=== PATIENT | male | born 1995 ===

== ENCOUNTER 2025-03-28 08:53 | Outpatient (AMB) | payer OTHER, SELFPAY ==
--- NOTE | 2025-03-28 08:56 | A.OFFVIS_ITS ---
Intake Visit Reasons: 6m Allergies No Known Allergies Allergy (Verified 03/24/25 13:30) Medication List - Last Reconciled 03/28/25 by Alfredito Marshall MD divalproex mg PO divalproex mg PO mirtazapine 7.5 mg PO BEDTIME risperidone mg PO risperidone 1 mg PO BEDTIME HPI Comments Details: 29 yr old man for f/u of Sz on a background of severe mental retardation, autism, limited communication with an occasional single word, and sometimes repeats what was said to him. He has been stable. No had no reported Sz till February when he had a Seizure after having run out of meds for about a week. He is now back to baseline. He can express his needs to use the bathroom or food. He needs help with showers and rest. He goes to daycare. He is cared for at home by his mother and older sister and caregiver. He is had 4 or 5 lifetime seizures starting in his teenage years with no recurrence in the last 5 years or more. On 2 of these occasions he had urinary incontinence and was shaking. He is currently on Depakote twice a day. The mother is very concerned about taking him off seizure medication. [facility] Medical History (Updated 03/28/25 @ 09:03 by Alfredito Marshall MD) Static encephalopathy Autism Review of Systems Const Details: leep:? Difficulty getting to sleepdenies,?denies.? Difficulty maintaining sleep denies?,?denies?.? Urge to move legsdenies,?denies.? Teeth grindingad mits,?admits.? Shouting or Kicking during sleepdenies,?denies.? Abnormal behavior during sleepdenies,?denies.? Excessive sleepdenies,?denies.? Snoring denies,?denies.? Daytime sleepinessdenies,?denies. ???General/Constitutional:? Change in appetitedenies,?denies.? Chillsdenies,?denies.? Fatiguedenies,?denies .? Feverdenies,?denies.? Weight gaindenies,?denies.? Weight lossdenies,?denies. ???Ophthalmologic:? Blurred visiondenies,?denies.? Diminished visual acuitydenies,?denies. ???ENT:? Stuffinessdenies,?denies.? Decreased hearingdenies,?denies.? Dry mouth denies,?denies.? Ear paindenies,?denies.? Nosebleeddenies,?denies.? Ringing in the earsdenies,?denies.? Sinus paindenies,?denies.? Sore throatdenies,?denies.? Swollen glandsdenies,?denies. ???Endocrine:? Cold intolerancedenies,?denies.? Excessive thirstdenies,?denies.? Frequent urinationdenies,?denies.? Heat intolerancedenies,?denies. ???Respiratory:? Shortness of breathdenies,?denies.? Chest paindenies,?denies.? Cough denies,?denies. ???Breast:? Breast lumpdenies,?denies.? Nipple dischargedenies,?denies. ???Cardiovascular:? Chest pain at restdenies,?denies.? Chest pain with exertiondenies,?denies.? Claudicationdenies,?denies.? Dizzinessdenies,?denies.? Fluid accumulation in the legsdenies,?denies.? Irregular heartbeatdenies,?denies.? Palpitations denies,?denies. ???Gastrointestinal:? Abdominal paindenies,?denies.? Constipationdenies,?denies.? Diarrhea denies,?denies.? Difficulty swallowingdenies,?denies.? Heartburndenies,?denies.? Nauseadenies,?denies.? Rectal bleedingdenies,?denies. ???Hematology:? Easy bruisingdenies,?denies.? Prolonged bleedingdenies,?denies. ???Genitourinary:? Frequent urinationdenies,?denies.? Urgencydenies,?denies.? Incontinence denies,?denies.? Erectile Dysfunctiondenies,?denies. ???Musculoskeletal:? Neck paindenies,?denies.? Back paindenies,?denies.? Muscle achesdenies,?denies .? Painful jointsdenies,?denies.? Sciaticadenies,?denies.? Weakness denies,?denies. ???Podiatric:? Difficulty walkingdenies,?denies.? Foot numbnessdenies,?denies. ???Neurologic:? Difficulty swallowingdenies,?denies.? Balance difficultydenies,?denies.? Coordinationnormal,?normal.? Difficulty speakingdenies,?denies.? Dizziness denies,?denies.? Faintingdenies,?denies.? Gait abnormalitydenies,?denies.? Headachedenies,?denies.? Loss of strengthdenies,?denies.? Loss of use of extremitydenies,?denies.? Low back paindenies,?denies.? Memory loss denies,?denies.? Seizuresadmits,?admits.? Ticsdenies,?denies.? Tingling/Numbness denies,?denies.? Transient loss of visiondenies,?denies.? Tremordenies,?denies. ???Psychiatric:? Anxietydenies,?denies.? Auditory/visual hallucinationsdenies,?denies.? Delusionsdenies,?denies.? Depressed mooddenies,?denies.? Stressorsdenies,?denies .? Substance abusedenies,?denies.? Suicidal thoughtsdenies,?denies. Physical Exam Neuro Other: General Examination: GENERAL APPEARANCE:??normal,?in no acute distress.?HEAD:??normocephalic,?atraumatic.?EYES:??sclera non- icteric,?conjunctiva clear.?EARS:??auditory canal clear,?tympanic membrane intact, clear.?NOSE:??no lesions.?ORAL CAVITY:??gums normal,?mucosa moist,?no lesions.?THROAT:??clear.?NECK/THYROID:??no cervical lymphadenopathy,?thyroid normal,?neck supple, full range of motion,?no carotid bruit.?SKIN:??no rashes,?no significant birthmarks.?HEART:??S1, S2 normal,?no murmurs.?LUNGS:??clear anteriorly and posteriorly.?CHEST:??no gross rib deformity,?clear to auscultation.?BACK:??normal exam of spine.?EXTREMITIES:??no edema.?PERIPHERAL PULSES:??normal.?PSYCH:??alert, unable to evaluate. He is nonverbal. Does not follow commands.? Neurological: Abnormal neurological findings:??Severe . Unable to communicate effectively. alert and non verbal. limited cooperation.?.?Cranial Nerves:??Pupils are equal, round and reactive to light. External occular muscles are intact. Visual jim are full, no ptosis. Face is symmetrical, no facial weakness or droop. Facial sensations are normal. Tongue protrudes in midline. Palate elevates symmetrically. Shoulder shrugging is normal..?Motor Examination:??Normal muscle tone, bulk and strength,?No atrophy or fasciculations,?No drift of the extended upper extremities,?Deep tendon reflexes are 2+?,?Plantars are flexor?.?Motor Strength:?Proximal Muscles (out of 5):5Distal Muscles (out of 5):5Neck Flexors (out of 5):5Neck Extensors (out of 5):5Deltoid (out of 5):5Biceps (out of 5):5 Triceps (out of 5):5Serratus Anterior (out of 5):5Wrist Extensors (out of 5):5 APB (out of 5):5Finger Spread (out of 5):5Ileopsoas (out of 5):5Quadriceps (out of 5):5Hamstrings (out of 5):5Tibialis Anterior (out of 5):5Peronei (out of 5):5 EDB (out of 5):5Gastrocnemius (out of 5):5Straight Leg Raising:??90 degrees.?Sensory Exam:??Normal light touch, temperature, pinprick, vibration and joint-position sensations?,?Rhomberg sign is absent.?Coordination:??no ataxia,?no titubation,?[id number], zlrb-[id number] test and rapid alternating movements were normal.?Gait Exam:??Within normal limits.?Cerebellar Signs:??unable ?No tremor, rigidity with normal facial expressions,?No bradykinesia, no bradyphrenia. Normal arm swing and posture. No propulsion or retropulsion.?Speech:??limited.? 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 The mother understands the importance. Continue current medications which is Depakote 250 mg in the morning and 500 mg at bedtime Medications: New divalproex 250 mg PO ONCE 90 tabs 3RF Seizure 90 days divalproex 500 mg PO ONCE 90 tabs 3RF 90 days Coding Level of Care Code Est Pt Level 4 (57194) Diagnoses Seizure disorder G40.909 Autism F84.0 Static encephalopathy G93.49
--- OUTSIDE RECORDS SUMMARY | 2025-03-28 09:24 | XMS_ITS | Clinical Summary ---
Author Organization [address] Address [address] [place] [phone] Phone Care Team Providers Care Shrinking Machine Operator Name Role Phone Saskia Balderrama MD Primary Care Provider [phone] Allergies No known active allergies Medications LORazepam (ATIVAN) 0.5 mg tablet Take 1 Tablet by mouth Once for 1 dose. Take 30 mins prior to blood draw if needed 03/09/2024 Active divalproex (DEPAKOTE) [address] tablet Take 1 tablet (250 mg total) by mouth 1 (one) time each day. Active divalproex (DEPAKOTE) [address] tablet Take 1 tablet (500 mg total) by mouth 1 (one) time each day in the evening. 12/24/2020 Active mirtazapine (REMERON) 15 mg tablet Take 1 tablet (15 mg total) by mouth at bedtime. 06/14/2018 Active risperiDONE (RisperDAL) 1 mg tablet Take 0.5 Tablets by mouth every evening. Take 3 QHS 06/14/2018 Active loratadine (CLARITIN) 10 mg tablet Take 1 tablet (10 mg total) by mouth 1 (one) time each day. 90 tablet 1 08/02/2024 Active Active Problems Problem Noted Date Diagnosed Date Lack of expected normal physiological developmen t 06/20/2024 Overview (06/20/2024): IMO update Disturbance of conduct 06/20/2024 Overview (06/20/2024): IMO update Seizure disorder (CMS/HCC V24, CMS/HCC V28) 11/13 Autistic disorder 10/10/2005 Overview (06/20/2024): IMO update Encounters Date Type Department Care Team Description 02/01/2025 Telephone Adult Medicine [address] [phone] Saskia Balderrama MD 01/24/2025 Telephone Adult Medicine [address] [phone] Saskia Balderrama MD 12/27/2024 Telephone Adult Medicine [address] [phone] Carol Aguirre MA from Last 3 Months Immunizations Immunization Administration Dates Next Due DTaP (Infanrix) 6wks to less than 7yo ,04/29/1998,03/29/1997,01/27,1996 [id number]-OGI-VWS (Pentacel) 2mo to less than 5yo 12/27/1997,03/29/1997,01/27/1997,10/27 Hepatitis B Pediatric (Enger ix B; Recombivax HB) to less than 20 yo 04/04/1997,1996,1996 IPV Inactivated polio (Ipol) 6wks and older 08/26/2001,12/27/1997,01/27/1997,10/27 Influenza Quadravalent, MDCK , 0.5ml, preservative free (Flucelvax) 6mo and older 08/05/2019 Influenza trivalent, 0.5mL, preservative free (Fluarix; FluLaval; Fluzone) ages 6mo and older (Afluria) 3 years and older 07/07/2013 Influenza, live, intranasal, trivalent (FluMist) 2yo to less than 50yo 02/06/2011,04/09/2009 MMR, measles mumps and rubel la Live (Priorix; M-M-R II) 12mo and older 08/26/2001,12/27/1997 Meningococcal MCV4P 10/30/2015,10/12/2009 Tdap Tetanus diptheria acell ular pertussis (Boostrix; Adacel) 7yo and older 08/24/2008 Varicella live (Varivax) 12m o and older 08/24/2008,04/29/1998 Surgical History Surgery Date Site/Laterality Comments OTHER SURGICAL HISTORY PROCEDURE: DENIES PREVIOUS SURGERY Medical History Medical History Date Comments Lack of normal physiological development, unspecified DX:Lack of normal physiologi donato development, unspecified Unspecified disturbance of conduct DX:Unspecified disturbance of conduct Autistic disorder, current o r active state DX:Autistic disorder, curren t or active state Family History Medical History Relation Name Comments Asthma Aunt Alzheimer's disease Maternal Grandmother Hypertension Maternal Grandmother Stroke Maternal Grandmother Arthritis Mother Hyperlipidemia Mother Allergies Sister 1 Relation Name Status Comments Aunt Father Alive 11/27/ Maternal Grandfather Alive Maternal Grandmother Alive Mother Alive 12/31/1969 Paternal Grandfather Paternal Grandmother Sister 1 Sister 2 Alive 02/21/1991 Sister 3 06/21/1999 Social History Tobacco Use Types Packs/Day Years Used Date Smoking Tobacco: Never Smokeless Tobacco: Never Tobacco Cessation:Counseling Given: Not Answered Alcohol Use Standard Drinks/Week Comments No 0 (1 standard drink = 0.6 oz pur e alcohol) Sex and Gender Information Value Date Recorded Sex Assigned at Not on file Legal Sex Male 8:16 AM EST Gender Identity Not on file Sexual Orientation Not on file Obstetrics History Last Filed Vital Signs Vital Sign Reading Time Taken Comments Blood Pressure 110/70 12/21/2024 8:16 AM EDT Pulse 106 12/21/2024 8:16 AM EDT Temperature 36.4 C (97.5 F) 12/21/2024 8:16 AM EDT Respiratory Rate 14 12/21/2024 8:16 AM EDT Oxygen Saturation - - Inhaled Oxygen Concentration - - Weight 84.8 kg (187 lb) 12/21/2024 8:16 AM EDT Height 180.3 cm (5' 11 ) 12/21/2024 8:16 AM EDT Body Mass Index 26.08 12/21/2024 8:16 AM EDT Plan of Treatment Health Maintenance Due Date Last Done Comments DTaP,Tdap,and Td Vaccines (7 - Td or Tdap) 08/24/2018 08/24/2008, 08/26/2001, 04/29/1998, Additional history exists HIV Screening 05/18/2022 Hepatitis C Screening 05/18/2022 Social Influencers of Health Screening 05/18/2022 HPV Vaccines (1 - 3-dose SCDM series) 09/22/2023 Depression Screening 06/15/2024 07/10/2023 Influenza Vaccine (#1) 2025 , 07/07/2013, 02/06/2011, Additional history exists RSV Immunization Adult Patients (1 - 1-dose 75+ series) 09/22/2071 Hepatitis B Vaccines Completed 04/04/1997, 1996, 1996 HIB Vaccines Completed 12/27/1997, 03/15, 01/27/1997, Additional history exists IPV Vaccines Completed 08/26/2001, 12/13, 12/27/1997, Additional history exists MMR Vaccines Completed 08/26/2001, 12/27/1997 Varicella Vaccines Completed 08/24/2008, 04/29/1998 Meningococcal ACWY Vaccine Aged Out 10/30/2015, No longer eligible based on patient's age to complete this topic COVID-19 Vaccine Discontinued Hepatitis A Vaccines Aged Out No long er eligible based on patient's age to complete this topic Meningococcal B Vaccine Aged Out No l onger eligible based on patient's age to complete this topic Pneumococcal Vaccine: Pediatrics (0 to 5 Years) and At-Risk Patients (6 to 49 Years) Aged Out No longer eligible based on patient's age to complete this topic RSV Immunization Patients Under 20 months Aged Out No longer eligible based on patient's age to complete this topic Procedures Procedure Name Priority Date/Time Associated Diagnosis Comments DEPRESSION SCREENING Routine 07/10/2023 from Last 3 Months or Most Recently Relevant to Health Maintenance Results * Depression Screening (07/10/2023) Depression Screening Abstracted Historical Provider MD HEALTH MAINTENANCE Final Result from Last 3 Months or Most Recently Relevant to Health Maintenance Insurance [facility] Care Teams Shrinking Machine Operator Relationship Specialty Start Date End Date Saskia Balderrama MD [address] [place] [phone] PCP - General Internal Medicine 06/27/24
== END 2025-03-28 09:13 | disposition home or self-care (01) ==
PROVIDERS: PCP Internal Medicine; Referring Provider Internal Medicine; Visit Provider Psychiatry & Neurology Neurology
DX: G40.909 Epilepsy, unspecified, not intractable, without status epilepticus (principal); F84.0 Autistic disorder; G93.49 Other encephalopathy
CPT/HCPCS: 99214

== ENCOUNTER → 2025-03-28 08:53 | Outpatient (BNVA) | payer OTHER, SELFPAY | PROVIDERS: PCP Internal Medicine; Referring Provider Internal Medicine; Visit Provider Psychiatry & Neurology Neurology | DX: G40.909 Epilepsy, unspecified, not intractable, without status epilepticus (principal); F84.0 Autistic disorder; G93.49 Other encephalopathy | CPT/HCPCS: 99212 ==